=== PATIENT | female | born 1940 | race Caucasian/White ===

== ENCOUNTER → 2017-05-09 | Outpatient (CLI) | payer MEDICARE, OTHER ==
[~2017-05-09] MED LIST: ASPIR 8181 MG PO; ATORVASTATIN CA40 MG PO; B12INJ PO; EFFIENT10 MG PO; GRAM-O-LECI1000 MG PO; IMDUR 30 MG TAB30 M1; NITROGLYCERIN0.4 MG SUBLING; PLAVIX 75 MG TA75 MG PO; VITAMIN D1000 UNI1 PO
[2017-05-09 13:52] LABS: ABSOLUTE EOSINOPHILS 0.1 thou/uL (0.0-0.7); ABSOLUTE LYMPHOCYTES 1.1 thou/uL (0.8-5.3); ABSOLUTE MONOCYTES 0.5 thou/uL (0.0-1.2); ABSOLUTE NEUTROPHILS 5.4 thou/uL (1.6-8.1); BASOPHILS 0.7 %; HEMATOCRIT 28.2 % (37.0-47.0); HEMOGLOBIN 9.3 gm/dL (12.0-15.0); LYMPHOCYTES 15.3 %; MCH 31.4 pg (26.0-34.0); MCHC 33.1 g/dL (28.0-37.0); MCV 94.9 fL (80.0-100.0); MONOCYTES 6.8 %; MPV 8.2 fl. (7.2-11.1); NUCLEATED RBCS 0 /100WBC; PLATELET COUNT* 300 thou/uL (150-400); POLYS 76.2 %; RBC 2.97 mil/uL (4.20-5.00); RDW-CV 14.1 % (10.5-14.5); WBC 7.1 thou/uL (4.0-11.0)
[2017-05-09 14:11] LABS: POTASSIUM 3.9 mmol/L (3.5-5.1)
== END ==
LOC: M.LAB 13:33
PROVIDERS: Internal Medicine
DX: I25.10 Atherosclerotic heart disease of native coronary artery without angina pectoris (principal)

== ENCOUNTER 2017-05-16 07:02 | Inpatient (IN) | payer MEDICARE, OTHER ==
[2017-05-16] VITALS (20 sets, daily range): BP systolic 123–186; BP diastolic 45–68
[~2017-05-16] VITALS: Ht 162.6 cm; Wt 61.2 kg
--- NOTE | ~2017-05-16 | H ---
[address] [address] HISTORY AND PHYSICAL Name: SHOLA CLEMONS Room: [address] IN M.R.#: [id number] Admission: 05/16/17 Attend Phys: David Dorantes MD, Discharge: 05/17/17 Date of : 42 Report #: [id number] THIS REPORT FOR: //name// Please refer to the History and Physical performed in the physician's office. By: [id number] Records Staff BETH /KADEN
[~2017-05-16 07:02] MED LIST changes: -NITROGLYCERIN0.4 MG SUBLING
[2017-05-16 08:04] LABS: HEMATOCRIT 31.8 % (37.0-47.0); HEMOGLOBIN 10.8 gm/dL (12.0-15.0); MCH 31.9 pg (26.0-34.0); MCV 93.6 fL (80.0-100.0); MPV 8.2 fl. (7.2-11.1); RBC 3.39 mil/uL (4.20-5.00); RDW-CV 14.1 % (10.5-14.5); WBC 8.4 thou/uL (4.0-11.0)
[2017-05-16 08:15] LABS: ANION GAP 9 mmol/L (7-16); BUN 22 mg/dL (7-18); CHLORIDE 107 mmol/L (98-107); CO2 26 mmol/L (21-32); GLUCOSE 83 mg/dL (70-99); SODIUM 142 mmol/L (136-145)
[2017-05-16 08:16] LABS: APTT 26.1 Seconds (25.0-31.3); PROTIME 9.5 Seconds (9.20-11.50)
[2017-05-16 08:21] LABS: ALBUMIN 3.6 g/dL (3.4-5.0); ALKALINE PHOSPHATASE 71 U/L (46-116); CHOLESTEROL 162 mg/dL (<200); HDL CHOLESTEROL 94 mg/dL (>40); LDL CHOLESTEROL 53 mg/dL (<100); SERUM ASSESSMENT Clear; SGOT 18 U/L (15-37); SGPT 27 U/L (30-65); TC:HDL 1.7 Ratio (Not establshd); TOTAL BILIRUBIN 0.3 mg/dL (<0.1-1.0); TOTAL PROTEIN 7.8 g/dL (6.4-8.2); TRIGLYCERIDE 77 mg/dL (<150); VLDL 15 mg/dL (<40)
--- NOTE | 2017-05-16 18:18 | NUR ---
PT ADMITTED TO ROOM 224 VIA CART FROM THE AERIAL GUNNER SUPERINTENDENT AT APPROXIMATELY 1335. REPORT RECEIVED FROM TYLER LIZAMA. ACCESS INTO RIGHT GROIN WITH MYNX CLOSURE. RIGHT GROIN IS C/D/I WITH NO HEMATOMA NOTED. POST CARDIAC CATH ASSESSMENT AND VITALS COMPLETED. REFER TO CHARTING. PT COMPLAINED OF HEADACHE. TREATED WITH PRN TYLENOL WITH RELIEF. ADMISSION ASSESSMENT AND HISTORY COMPLETED. REFER TO CHARTING. PHARMACY ENTERED AND HOME MEDICATIONS RECONCILED. PT ORIENTED TO ROOM AND CALL LIGHT. FAMILY AT BEDSIDE. PT ON BEDREST UNTIL 1730. PT A&0X4. TRACING SR ON THE MANAGER BIOLOGICS. ON RA SAT UPPER 90'S. DENIES ANY SHORTNESS OF BREATH. IVF AT 125ML/HR. PT UP SBA TO BATHROOM. MEDICATIONS PER JUL. PT TOOK HOME MEDCATIONS THIS AM PRIOR TO COMING IN FOR SCHEDULED HEART CATH. PT REPOSITIONS SELF IN BED WITH REMINDERS. HOURLY ROUNDING OBSERVED. BED IN LOW POSITION. CALL LIGHT WITHIN REACH. WILL CONTINUE PLAN OF CARE.
[2017-05-17 00:23] VITALS: BP 120/54
[2017-05-17 04:05] VITALS: BP 143/58
[2017-05-17 05:06] LABS: HEMATOCRIT 25.7 % (37.0-47.0); MCH 31.1 pg (26.0-34.0); MCHC 33.5 g/dL (28.0-37.0); MCV 92.7 fL (80.0-100.0); MPV 8.1 fl. (7.2-11.1); RBC 2.78 mil/uL (4.20-5.00); WBC 8.2 thou/uL (4.0-11.0)
[2017-05-17 05:13] LABS: HEMOGLOBIN 8.6 gm/dL (12.0-15.0)
--- NOTE | 2017-05-17 05:16 | NUR ---
ASSUMED CARE AROUND 193. PT A/OX4 AND PLEASANT, RESTING SOME TONIGHT. TELE MONITOR TRACING SR. RIGHT GROIN CATH SITE DRSG C/D/I, NO BLEEDING OR HEMATOMA NOTED. PT REPORTED MORE TENDERNESS AT SITE AROUND 0000, NO BRUIT NOTED, SITE REMAINS SOFT. ON ROOM AIR. DENIES ANY PAIN. IVF INFUSING ORDERED. UP SBA/AD CASTRO TO BSC & BR. VSS. AROUND 49, SHORT RUN OF SVT NOTED- PT ASYMPTOMATIC WITH IT. CALL LIGHT IN REACH, WILL CONTINUE WITH PLAN OF CARE.
[2017-05-17 05:25] LABS: ANION GAP 10 mmol/L (7-16); BUN 16 mg/dL (7-18); CALCIUM 7.8 mg/dL (8.5-10.1); CHLORIDE 109 mmol/L (98-107); CO2 23 mmol/L (21-32); CREATININE 0.9 mg/dL (0.6-1.3); GLUCOSE 96 mg/dL (70-99); SODIUM 142 mmol/L (136-145); TROPONIN-I LEVEL <0.06 ng/mL (<0.06)
[2017-05-17 08:00] VITALS: BP 138/58
--- NOTE | 2017-05-17 09:17 | NUR ---
ASSUMED CARE OF PT AT 0730. PT RESTING IN BED WAITING FOR BREAKFAST. PT A&0X4. DENIES ANY PAIN BUT STATES SHE HAS MILD TENDERNESS TO RIGHT GROIN. PT CONCERNED ABOUT DROP IN HGB SHE HAS HAD BLEEDING IN THE PAST. EDUCATION GIVEN REGARDING FLUIDS GIVEN. RIGHT GROIN CATH SITE C/D/I WITH NO HEMATOMA NOTED. PT TRACING SR ON THE LIVE HANGER. VSS. ON RA SAT 95%. DENIES ANY SHORTNESS OF BREATH. PT UP AD CASTRO IN ROOM. PT GOAL FOR TODAY IS TO DISCHARGE HOME. AM ASSESSMENT CHARTED. MEDICATIONS PER JUL. PT REFUSED IM VIT B12 STATING SHE WILL TAKE ORAL WHEN SHE GETS HOME. PT REPOSITIONS SELF IN BED WITH REMINDERS. HOURLY ROUNDING OBSERVED. BED IN LOW POSITION. CALL LIGHT WITHIN REACH. WILL CONTINUE PLAN OF CARE.
[2017-05-17 09:26] LABS: HEMATOCRIT 28.2 % (37.0-47.0); HEMOGLOBIN 9.3 gm/dL (12.0-15.0)
[2017-05-17 10:15] VITALS: BP 148/57
[2017-05-17] MEDS ORDERED: NITROGLYCERIN0.4 MG SUBLING (10:52)
--- NOTE | 2017-05-17 11:03 | CARD ---
[address] [address] CARDIAC CATH REPORT Name: SHOLA CLEMONS Room: [address] IN M.R.#: [id number] Admission: 05/16/17 Attend Phys: David Dorantes MD, Discharge: Date of : 42 Report #: [id number] THIS REPORT FOR: //name// APPROVED REPORT Patient Details Patient Status: Out-Patient Room #: The patient is a 76 year-old female Event Personnel David Dorantes Casting Room Operator, Geovanna Summers RN Sports Physical Therapist, Fahad Burns (R) Monitor, Avril Merlos Scrub Procedures Performed ELIZA Place w/wo Plasty Single CIRC Indication Unstable angina Risk Factors Hypercholesterolemia, Hypertension Previous Procedures/Diagnoses Previous PCI Admission/Lab Medications/Medications given during procedure Aspirin, Platelet Aff. Inhib., Angiomax bolus and infusion Procedure Narrative The patient was brought electively to the Cardiac Catheterization Laboratory and was prepped and draped in a sterile manner. The right femoral was infiltrated with 1% Lidocaine subcutaneous anesthesia. A Holiday 6 FR sheath was inserted into the Right Femoral Artery. Coronary angiography was performed using coronary diagnostic catheters. The right coronary system was accessed and visualized with a Diagnostic catheter. The left coronary system was accessed and visualized with a Diagnostic catheter. The left ventricle was accessed and visualized with a Diagnostic catheter. Left ventricular/Aortic Valve gradient assessed via catheter pullback. Left ventriculogram was performed in ELIZALDE projection. Closure device was deployed with a Fr MynxGrip 6/7F. The patient tolerated the procedure well and there were no complications associated with the procedure. Intraoperative Conscious Sedation [address] [address] CARDIAC CATH REPORT Name: SHOLA CLEMONS Room: [address] IN ..#: [id number] Admission: 05/16/17 Attend Phys: David Dorantes MD, Discharge: Date of : 42 Report #: [id number] Sedation start time: 9:49 Case end Time: 10:50 Fentanyl 25 mcg Versed 2 mg Fluoro Time: 11.5 minutes Dose: DAP 16835 cGycm2 842 mGy Contrast Type and Amount: Visipaque 265 ml Coronary Angiography The patient's coronary anatomy is co- dominant. Diagnostic Cath Left Main 0% narrowing LAD 60% mid LAD narrowing Circumflex 90% proximal circumflex in-stent restenosis Right Coronary 30% mid vessel narrowing IVUS Findings NC Trek RX 2.5 X 15 Hemodynamics The aortic pressure is 137/53 mmHg with a mean of 87 mmHg. The left ventricular pressure is 132/-2 mmHg with a mean of mmHg. The left ventricular end diastolic pressure is 7 mmHg. There was no gradient across the aortic valve upon pullback. PCI Technique Lesion Anticoagulation was achieved with Angiomax. Patient was preloaded with Angiomax IV 9 ml. Percutaneous coronary intervention was performed on the proximal circumflex artery segment. The lesion stenosis prior to intervention was 90% with AYLIN flow. A 6FR XB 3.0 100CM Guide Catheter was used to engage the ostium. A IG: ProwaterFlex 180CM Interventional Guidewire was used to cross the lesion. BALLOON DILATION A Balloon catheter Trek RX 2.5 X 15 was inserted and inflated up to 14.00atm for 17seconds. Additional Inflation: 16.00atm for 16seconds. STENT DEPLOYMENT A drug-eluting stent Xience Alpine RX 2.5X18 was inserted and inflated up to 14atm for 15seconds. Final angiography reveals 0 % stenosis with AYLIN 3 [place] [address] CARDIAC CATH REPORT Name: SHOLA CLEMONS Room: [address] IN [facility].#: [id number] Admission: 05/16/17 Attend Phys: David Dorantes MD, Discharge: Date of : 42 Report #: [id number] BALLOON DILATION A Balloon catheter NC Trek RX 2.5 X 15 was inserted and inflated up to 18.00atm for 15seconds. Additional Inflation: 18.00atm for 15seconds. STENT DEPLOYMENT A drug-eluting stent Xience Alpine RX 2.5X18 was inserted and inflated up to 12.00atm for 18seconds. Additional Inflation: 15.00atm for 15seconds. Conclusion #1 significant coronary artery disease characterized by the following: A 60% mid LAD stenosis, B 90% stenosis of the proximal portion of the codominant circumflex, predominantly within the previously deployed stent, C co- dominant right coronary artery with 30% mid vessel narrowing #2 normal left ventricular systolic function, estimate ejection fraction of 65%, #3 normal left-sided hemodynamics study, #4 successful percutaneous coronary intervention with deployment of drug-eluting stent at site of 90% proximal circumflex in-stent restenosis with 0% residual narrowing following stent deployment and AYLIN-3 flow the distal vessel. Recommendations Daily ASA with Plavix for at least one year Cardiac Risk Reduction Program Medications Administered Aspirin (any) Clopidogrel <ELECTRONICALLY SIGNED> By: David Dorantes MD, FACC 05/17/17 1103 02 1103David Dorantes MD, FACC /INF
--- NOTE | 2017-05-17 12:00 | NUR ---
DISCHARGE ORDERS RECEIVED. DISCHARGE INSTRUCTIONS, CARE NOTES, SCRIPTS AND FOLLOW UP APPTS GIVEN TO PT. PT COMMUNICATES UNDERSTANDING OF DISCHARGE TEACHING. CARDIAC REHAB NURSE IN TO EDUCATE PT. IV AND AUTISM TEACHER REMOVED. PT DISCHARGED WITH ALL BELONGINGS AND PAPERWORK VIA WHEELCHAIR WITH NURSING STAFF TO SPOUSE OWN PERSONAL VEHICLE.
--- NOTE | 2017-05-17 13:39 | D ---
[address] [address] DISCHARGE SUMMARY Name: SHOLA CLEMONS Room: [address] IN M.R.#: [id number] Admission: 05/16/17 Attend Phys: David Dorantes MD, Discharge: 05/17/17 Date of : 44 Report #: [id number] THIS REPORT FOR: //name// CC: Ernestina Dorantes DATE OF SERVICE: 05/17/2017 FINAL DISCHARGE DIAGNOSES: 1. Unstable angina. 2. Coronary artery disease. 3. Status post percutaneous coronary intervention of the proximal circumflex on 05/16/2017. 4. Chronic obstructive pulmonary disease. 5. Tobacco abuse. 6. Left carotid stenosis. PROCEDURES: 05/16/2017 -- left heart catheterization, left ____, selective coronary arteriography and percutaneous coronary intervention with deployment of a drug-eluting stent at the site of 90% tubular proximal circumflex stenosis. HOSPITAL COURSE: The patient is a very pleasant 76-year-old female with a number of risk factors for coronary artery disease. She is status post prior stenting of the circumflex. She presented with recrudescence of symptoms typical of her prior angina following a somewhat unstable course with dyspnea on moderate exertion. In that context, I performed recatheterization on 05/16/2017, which revealed 90% proximal circumflex stenosis, predominantly in-stent. I deployed a second 2.5 x 18 mm Xience Alpine drug-eluting stent in the circumflex with no significant residual narrowing and AYLIN 3 flow of the distal vessel, and troponin falling within the reference range of less than 0.06. There was good hemostasis at the right femoral site of catheterization. LABORATORY DATA: Revealed a hemoglobin of 8.6, white blood cell count of 8200 with 309,000 platelets. Sodium 142, potassium 4.0, BUN 16, creatinine 0.9. Of note, hemoglobin has been depressed by recent GI bleeding with a delusional effect with post-procedural hydration, a bit further to the aforementioned 8.6. She ambulated in the hallways without difficulty. She was discharged to home in stable condition. MEDICATIONS: Will include the following: Aspirin 81 mg daily, atorvastatin 40 mg daily, cholecalciferol 1000 units daily, clopidogrel 75 mg daily with additional 600 mg given periprocedurally, lecithin 1000 mg daily, vitamin B12 1000 mcg daily, p.r.n. [place] [address] DISCHARGE SUMMARY Name: SHOLA CLEMONS Room: [address]#: [id number] Admission: 05/16/17 Attend Phys: David Dorantes MD, Discharge: 05/17/17 Date of : 44 Report #: [id number] FOLLOWUP: Our plan is to see her in followup in 4 weeks. DISPOSITION: She is discharged to home in stable condition on the aforementioned medications with followup as iterated above. <ELECTRONICALLY SIGNED> By: David Dorantes MD, FACC 05/17/17 1339 1025 [id number] Dorantes MD, [facility] /nt
--- NOTE | 2017-05-17 14:09 | EKG ---
[place] [address] ELECTROCARDIOGRAM REPORT Name: SHOLA CLEMONS Room: [address] IN M.R.#: [id number] Admission: 05/16/17 Attend Phys: David Dorantes MD, Discharge: 05/17/17 Date of : 42 Report #: [id number] THIS REPORT FOR: //name// [facility] Test Date: 2017-05-16 Test Time: 08:13:43 Pat Name: SHOLA CLEMONS Department: Room: [facility] Gender: F Stroke Coordinator: [place] : 1940 Requested By: David Dorantes Order Number: [id number] Betsy MD: David Dorantes Measurements Intervals [place] Rate: 75 P: 82 OR: 130 QRS: 76 QRSD: 82 T: 52 QT: 418 QTc: 467 Interpretive Statements Sinus rhythm Borderline T wave abnormalities Compared to ECG 04/19/2016 04:06:42 No significant changes Electronically Signed On 05-17-2017 14:09:23 BABY NURSE by David Dorantes [email or web address] <ELECTRONICALLY SIGNED> By: David Dorantes MD, [facility] 05/17/17 1409 2 2 David Dorantes MD, [facility] /EPI
--- NOTE | 2017-05-17 14:15 | EKG ---
[place] [address] ELECTROCARDIOGRAM REPORT Name: SHOLA CLEMONS Room: [address] IN M.R.#: [id number] Admission: 05/16/17 Attend Phys: David Dorantes MD, Discharge: 05/17/17 Date of : 44 Report #: [id number] THIS REPORT FOR: //name// [facility] Test Date: 2017-05-16 Test Time: 11:19:04 Pat Name: SHOLA CLEMONS Department: Room: [facility] Gender: F Lathe Setup Operator: DELILAH : 1940 Requested By: David Dorantes Order Number: [id number] Betsy MD: David Dorantes Measurements Intervals [place] Rate: 73 P: 75 [place]: 130 QRS: 73 QRSD: 83 T: 57 QT: 377 QTc: 416 Interpretive Statements Sinus rhythm Borderline abnrm T, anterolateral leads Compared to ECG 04/19/2016 04:06:42 T-wave abnormality no longer present Electronically Signed On 05-17-2017 14:15:13 FISHING FLOATS ASSEMBLER by David Dorantes [email or web address] <ELECTRONICALLY SIGNED> By: David Dorantes MD, [facility] 05/17/17 1415 1119 1119 David Dorantes MD, [facility] /EPI
--- NOTE | 2017-05-17 15:27 | EKG ---
[place] [address] ELECTROCARDIOGRAM REPORT Name: SHOLA CLEMONS Room: [address] IN M.R.#: [id number] Admission: 05/16/17 Attend Phys: David Dorantes MD, Discharge: 05/17/17 Date of : 44 Report #: [id number] THIS REPORT FOR: //name// [facility] Test Date: 2017-05-17 Test Time: 05:46:49 Pat Name: SHOLA CLEMONS Department: Room: [facility] Gender: F [employer] Architect: KGPAMELA : 1940 Requested By: David Dorantes Order Number: [id number] Reading MD: Neo Turpin Measurements Intervals [place] Rate: 86 P: 77 [place]: 125 QRS: 66 QRSD: 78 T: 32 QT: 520 QTc: 622 Interpretive Statements Sinus rhythm Borderline T wave abnormalities Prolonged QT interval Compared to ECG 04/19/2016 04:06:42 Prolonged QT interval now present T-wave abnormality still present Electronically Signed On 05-17-2017 15:26:51 CAKE WASHER by Neo Turpin [email or web address] <ELECTRONICALLY SIGNED> By: Neo Turpin MD, [facility] 05/17/17 1526 0546 0546 Neo Turpin MD, [facility] /EPI
== END 2017-05-17 12:00 | disposition home or self-care (01) | DRG 247 ==
LOC: M.CL 07:02 → M.2W 11:09 → M.TBA-CV 11:09 → M.2W 13:40
PROVIDERS: ADMIT Internal Medicine
PROC: 4A023N7 Measurement of Cardiac Sampling and Pressure, Left Heart, Percutaneous Approach (ICD-10-PCS; principal; 2017-05-17)
PROC: 027034Z Dilation of Coronary Artery, One Artery with Drug-eluting Intraluminal Device, Percutaneous Approach (ICD-10-PCS; principal; 2017-05-17)
PROC: B211YZZ Fluoroscopy of Multiple Coronary Arteries using Other Contrast (ICD-10-PCS; principal; 2017-05-17)
DX: T82.855A Stenosis of coronary artery stent, initial encounter (principal); I25.110 Atherosclerotic heart disease of native coronary artery with unstable angina pectoris; J44.9 Chronic obstructive pulmonary disease, unspecified; I65.22 Occlusion and stenosis of left carotid artery; Z72.0 Tobacco use